=== PATIENT | female | born 1995 | race Caucasian/White ===

== ENCOUNTER 2022-09-27 20:37 | Emergency (ER) | payer OTHER ==
[~2022-09-27] VITALS: Ht 170.2 cm; Wt 70.3 kg
[2022-09-27 20:50] VITALS: BP 127/81
== END 2022-09-27 20:55 | disposition home or self-care (01) ==
LOC: ED 20:37
DX: R68.2 Dry mouth, unspecified (principal)
CPT/HCPCS: Q0163